=== PATIENT | female | born 1990 | race Caucasian/White ===

== ENCOUNTER → 2016-04-22 | Outpatient (CLI) | payer BC ==
[2016-04-22 13:31] LABS: Cancer Anitgen 125 <5.5 U/mL (<35.1)
== END ==
LOC: LABWHC1 12:31
PROVIDERS: ATTEND Obstetrics & Gynecology
DX: D49.59 Neoplasm of unspecified behavior of other genitourinary organ (principal); R23.2 Flushing
CPT/HCPCS: 36415; 84439; 84443; 86304

== ENCOUNTER → 2016-05-02 | Outpatient (CLI) | payer BC ==
--- NOTE | 2016-05-02 09:32 | USB ---
Reason for exam: clinical finding. History: Family history of breast cancer in maternal aunt at age 35. Took hormonal contraceptives beginning at age 17. Indicated problem(s): palpable abnormality and lump or thickening in the right breast. Physical Findings: Nurse Summary: 1cm nodule in the right breast, firm, movable (nurse dw). US Breast RT Right breast ultrasound includes all four quadrants, the retroareolar region and axilla. Finding demonstrate a 18 x 11 x 16mm oval, solid, hypoechoic, vascular lesion at 11 o'clock, probable fibroadenoma. These results were verbally communicated with the patient and result sheet given to the patient on 05/02/16. ASSESSMENT: Probably benign, BI-RAD 3 RECOMMENDATION: Consider Ultrasound core biopsy of the right breast. Consider surgical consultation. (to confirm if desired) Called Dr. Ugalde with mammographic findings and has scheduled an appointment for the patient for 05/14/16 at 3:[address] Arndt. PRELIMINARY REPORT CALLED AND FAXED TO DR. CHRISTINE ON 05/02/16 AT 1000/TP. MELECIOD
== END | disposition home or self-care (01) ==
LOC: RADUSWWP 08:17
PROVIDERS: ATTEND Obstetrics & Gynecology
DX: N63 Unspecified lump in breast (principal)

== ENCOUNTER → 2016-05-09 | Outpatient (CLI) | payer BC ==
--- NOTE | 2016-05-09 10:55 | US ---
EXAMINATION TYPE: US pelvic complete DATE OF EXAM: 05/09/2016 10:14 AM COMPARISON: US August 23, [address] October 28, 2014 on PACS CLINICAL HISTORY: R10.2 Pelvic pain. Ovarian CA at age 18. Ablation 2 years ago, no menses since. Tub al Ligation. . TECHNIQUE: Transvaginal (TV) and Transabdominal (TA) pelvic ultrasound. Date of LMP: 2 years ago EXAM MEASUREMENTS: Uterus: 7.9 x 5.5 x 4.1 cm cm Endometrial Stripe: 0.3 cm Right Ovary: 2.3 x 1.3 x 1.6 cm Left Ovary: 3.0 x 2.3 x 2.3 cm cm TECHNOLOGIST IMPRESSION: wnl 1. Uterus: Heterogeneous, prominent vessels seen within uterus. 2. Endometrium: wnl 3. Right Ovary: wnl 4. Left Ovary: with follicles. Largest = 1.0 x 0.8 x 0.7 cm 5. Bilateral Adnexa: wnl 6. Posterior cul-de-sac: wnl No concerning ovarian or adnexal masses identified on current study. IMPRESSION: No significant finding is seen to account for patient's symptoms.
== END | disposition home or self-care (01) ==
LOC: RADUSWWP 09:01
PROVIDERS: ATTEND Obstetrics & Gynecology
DX: R10.2 Pelvic and perineal pain (principal)
CPT/HCPCS: 76830; 76856

== ENCOUNTER 2016-06-10 08:04 | Day surgery (SDC) | payer BC ==
[2016-06-07 08:42] VITALS: BMI 24.7
[~2016-06-10 08:04] MED LIST: ALPRAZolam 0.5 MG TAB PO PRN; DEXAMETHASONE SOD PHOSPHATE 10 MG/ML 1 ML VIAL IV ONE; HEPARIN SODIUM,PORCINE 5,000 UNIT/ML 1 ML VIAL SQ ONE; HYDROmorphone 1 MG/ML 1 ML SYRINGE IVP PRN; LACTATED RINGERS 1,000 ML IV SCH; MIDAZOLAM 2 MG/2 ML VIAL IV PRN; ONDANSETRON 4 MG/2 ML VIAL IVP ONE; Pre Op ABX Message 1 EACH MISC MISCELLANE ONE
--- NOTE | 2016-06-10 08:16 | P.GSHP ---
History of Present Illness H&P Date: 06/10/16 Chief Complaint: Abnormal left breast ultrasound This a 26-year-old female who presents today for ultrasound-guided needle localized biopsy of left breast. Patient had a recent ultrasound shows a 18 mm density in the left breast suggestive of a fibroadenoma. Patient elected to undergo excisional below biopsied. The patient was originally scheduled for A CORE BIOPSY HOWEVER SHE DID NOT WANT TO UNDERGO THAT PROCEDURE DUE TO A PORTION OF THE MASS BEING POSSIBLY LEFT IN HER BREAST. - Constitutional Constitutional: Reports as per HPI Past Medical History Past Medical History: Cancer Additional Past Medical History / Comment(s): OVARIAN CANCER, NEUROCARDIOGENIC SYNCOPE, MIGRAINES, UTI, LOW BP,ANEMIA IN PAST. Having problems with n/v. States had a seizure aprrox. 2 yrs. ago. Hx. of Uterine Ablation. History of Any Multi-Drug Resistant Organisms: None Reported Past Surgical History: Tubal Ligation Additional Past Surgical History / Comment(s): Right oophorectomy, lesion removed from her right leg as a child, multiple eye surgeries for lazy eye, colonoscopy, EGD. Past Anesthesia/Blood Transfusion Reactions: No Reported Reaction Past Psychological History: Anxiety, Depression Smoking Status: Light tobacco smoker Past Alcohol Use History: None Reported Additional Past Alcohol Use History / Comment(s): Patient denies any history of smoking, street drug use or alcohol use. She does have problems with narcotic abuse(VICODIN). She is currently and lives at home with her . She has a son and daughter who are both alive and well. 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 Past Drug Use History: Opiates, Prescription Drug Abuse - Past Family History Mother Family Medical History: Diabetes Mellitus Father Family Medical History: Cancer Additional Family Medical History / Comment(s): KIDNEY CANCER Brother(s) Family Medical History: Unable to Obtain Son(s) Family Medical History: No Reported History Daughter(s) Family Medical History: No Reported History Medications and Allergies Home Medications Medication Instructions Recorded Confirmed Type Buprenorphine HCl/Naloxone HCl 1 each SL DAILY 06/06/15 06/07/16 History [Suboxone 8 mg-2 mg Sl Film] Ondansetron HCl [Zofran] 8 mg PO DAILY 06/07/16 06/07/16 History traZODone HCL 50 mg PO HS 06/07/16 06/07/16 History Allergies Allergy/AdvReac Type Severity Reaction Status Date / Time No Known Allergies Allergy Verified 06/07/16 08:17 Surgical - Exam - General well developed, no distress - Eyes PERRL - ENT normal pinna - Neck no masses - Respiratory normal expansion - Cardiovascular Rhythm: regular - Abdomen Abdomen: soft, non tender Breasts within normal limits. There is no masses palpated. There is no cervical or axillary lymphadenopathy. Results - Imaging Additional studies: 18 mm left breast density suggestive of fibroadenoma on ultrasound. Assessment and Plan Plan: Abnormal left breast also. Patient will undergo left breast needle localized biopsy.
--- NOTE | 2016-06-10 08:22 | P.GSHP ---
History of Present Illness H&P Date: 06/10/16 Chief Complaint: Abnormal right breast ultrasound This is a 26-year-old female who presents today for right breast ultrasound with needle localized biopsy. Patient's found have a right breast mass on ultrasound. The mass measures prostate 18 mm diameter and is suggestive of a fibroadenoma. Patient rents today for right breast needle localized ultrasound- guided biopsy. The patient was really scheduled for core biopsy however she did not wish to perform this procedure. - Constitutional Constitutional: Reports as per HPI Past Medical History Past Medical History: Cancer Additional Past Medical History / Comment(s): OVARIAN CANCER, NEUROCARDIOGENIC SYNCOPE, MIGRAINES, UTI, LOW BP,ANEMIA IN PAST. Having problems with n/v. States had a seizure aprrox. 2 yrs. ago. Hx. of Uterine Ablation. History of Any Multi-Drug Resistant Organisms: None Reported Past Surgical History: Tubal Ligation Additional Past Surgical History / Comment(s): Right oophorectomy, lesion removed from her right leg as a child, multiple eye surgeries for lazy eye, colonoscopy, EGD. Past Anesthesia/Blood Transfusion Reactions: No Reported Reaction Past Psychological History: Anxiety, Depression Smoking Status: Light tobacco smoker Past Alcohol Use History: None Reported Additional Past Alcohol Use History / Comment(s): Patient denies any history of smoking, street drug use or alcohol use. She does have problems with narcotic abuse(VICODIN). She is currently and lives at home with her . She has a son and daughter who are both alive and well. 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 Past Drug Use History: Opiates, Prescription Drug Abuse - Past Family History Mother Family Medical History: Diabetes Mellitus Father Family Medical History: Cancer Additional Family Medical History / Comment(s): KIDNEY CANCER Brother(s) Family Medical History: Unable to Obtain Son(s) Family Medical History: No Reported History Daughter(s) Family Medical History: No Reported History Medications and Allergies Home Medications Medication Instructions Recorded Confirmed Type Buprenorphine HCl/Naloxone HCl 1 each SL DAILY 06/06/15 06/07/16 History [Suboxone 8 mg-2 mg Sl Film] Ondansetron HCl [Zofran] 8 mg PO DAILY 06/07/16 06/07/16 History traZODone HCL 50 mg PO HS 06/07/16 06/07/16 History Allergies Allergy/AdvReac Type Severity Reaction Status Date / Time No Known Allergies Allergy Verified 06/07/16 08:17 Surgical - Exam - General well developed, no distress - Eyes PERRL - ENT normal pinna - Neck no masses - Respiratory normal expansion - Cardiovascular Rhythm: regular - Abdomen Abdomen: soft, non tender Breasts are within normal limits. There is no masses palpated. There is no cervical or axillary lymphadenopathy. Assessment and Plan Plan: Abnormal right breast ultrasound. Patient will undergo right breast ultrasound a needle localized biopsy.
[2016-06-10] MEDS ORDERED: LIDOCAINE 1% INJ 10MG/ML (20 ML MDV) SQ ONE (09:20)
[2016-06-10] MEDS ORDERED: SODIUM BICARB 4% 5 ML VIAL (0.48 MEQ/ML) MISCELLANE ONE (09:20)
[2016-06-10] MEDS ORDERED: SUCCINYLCHOLINE CHLORIDE 100 MG/5 ML SYR IV ONE (10:20)
[2016-06-10] MEDS ORDERED: ACETAMINOPHEN IV (For NPO) 1,000 MG/100 ML VIAL ONE (10:20)
[2016-06-10] MEDS ORDERED: fentaNYL (PF) 50 MCG/ML 2 ML AMP ONE (10:20)
[2016-06-10] MEDS ORDERED: LIDOCAINE 1% INJ 10MG/ML (20 ML MDV) ONE (10:20)
[2016-06-10] MEDS ORDERED: PROPOFOL 10 MG/ML 20 ML VIAL IV ONE (10:20)
[2016-06-10] MEDS ORDERED: KETOROLAC 30 MG/ML 1 ML VIAL ONE (10:20)
[2016-06-10] MEDS ORDERED: MIDAZOLAM 2 MG/2 ML VIAL ONE (10:20)
[2016-06-10] MEDS ORDERED: SODIUM CHLORIDE 0.9% 50 ML with ceFAZolin 2,000 MG IV ONE ×2 (10:43)
[2016-06-10] MEDS ORDERED: BUPIVACAIN-EPI 0.25%-1:200,000 30 ML VIAL SQ ONE ×3 (10:47)
--- NOTE | 2016-06-10 11:13 | P.OP ---
Date of Procedure: 06/10/16 Preoperative Diagnosis: Abnormal right breast ultrasound Postoperative Diagnosis: Abnormal right breast ultrasound Procedure(s) Performed: Right breast biopsy with ultrasound-guided needle localization Anesthesia: MAC Surgeon: Renzo Arndt Estimated Blood Loss (ml): 5 Pathology: other (Right breast biopsy) Condition: stable Disposition: PACU Description of Procedure: The patient's placed on the operative table in supine position. She received IV sedation. Patient's right breast was prepped and draped usual sterile fashion. The patient had previously undergone ultrasound-guided needle localization. The wire was located at the 7 o'clock position the breast. Using a 15 blade a skin incision was made. Next using cautery and Harmonic scissors a core of tissue around the wire was removed. The lesion was visualized in the specimen. It appeared to measure approximately 1.5 cm in diameter and was round, white and glistening. The Bovie was used for hemostasis. The specimen sent the [facility]. The skin was closed interrupted 3-0 Monocryl suture. Dermabond was applied. She was sent to recovery room in stable condition.
[2016-06-10 11:28] VITALS: TEMP 97.2
[2016-06-10] MEDS ORDERED: ONDANSETRON 4 MG/2 ML VIAL IVP ONE (11:28)
--- NOTE | 2016-06-10 11:48 | USB ---
EXAM: Needle localization with wire placement and follow-up attempted specimen ultrasound and follow-up radiograph. CLINICAL HISTORY: Palpable mass right breast with history of ovarian cancer, abnormal ultrasound. TECHNIQUE: Needle localization with wire placement and surgical excision of area of concern in the right breast as requested by surgeon. COMPARISON: Prior right breast ultrasound May 02, 2016. FINDINGS: The procedure of needle localization with wire placement and than surgical excision was explained to the patient. Benefits, alternatives, and risks were discussed. An informed consent was then obtained. Preprocedure ultrasound procedure scanning redemonstrates 1.6 x 1.2 cm well- circumscribed heterogeneous hypoechoic lesion at 11:00 position in the left breast. The overlying skin was prepped and draped in usual sterile fashion. Lidocaine buffered with bicarbonate was used as anesthetic into the skin and subcutaneous tissue up to the level of area of concern. A 5 cm needle was used. It was placed under ultrasound guidance into the lesion almost through deeper wall. At this point, wire was placed and the needle was withdrawn. The wire was fixed to patient's skin. The patient tolerated the procedure well without any immediate complication. The patient was kept in the radiology department for short stay after the procedure and then taken to surgery for surgical excision. Attempted ultrasound specimen was difficult to show well-circumscribed mass. Specimen mammogram was then performed which showed entire needle as well as targeted well- circumscribed roughly 1.5 cm mass. The patient was kept in hospital for short stay after the procedure and then discharged home in stable condition. IMPRESSION: Successful, uncomplicated needle localization with wire placement and surgical excision of palpable mass in the right breast, full pathology results to follow. Low to intermediate index of suspicion noted at time of procedure. Favor fibroadenoma. Pathology Results: Benign BREAST, RIGHT, NEEDLE LOCALIZATION EXCISION: FIBROADENOMA, NARROWLY EXCISED. ADJACENT BREAST WITH FIBROCYSTIC CHANGES INCLUDING FIBROSIS, CYSTS, ADENOSIS, APOCRINE METAPLASIA, LACTATIONAL CHANGES AND RARE MICROCALCIFICATIONS. Recommendation Follow up mammogram of the right breast in 6 months. OVIDIO
[2016-06-10 12:01] VITALS: RESP 18
[2016-06-10] MEDS ORDERED: ACETAMINOPHEN TAB 325 MG TAB PO ONE (12:26)
[2016-06-10 12:45] VITALS: BP 113/72; PULSE 67
== END 2016-06-10 12:57 | disposition home or self-care (01) ==
LOC: OR 08:04
PROVIDERS: ATTEND Surgery
DX: D24.1 Benign neoplasm of right breast (principal); N60.31 Fibrosclerosis of right breast; N60.21 Fibroadenosis of right breast; N60.81 Other benign mammary dysplasias of right breast; N64.89 Other specified disorders of breast; Z85.43 Personal history of malignant neoplasm of ovary; F41.9 Anxiety disorder, unspecified; F32.9 Major depressive disorder, single episode, unspecified; F17.200 Nicotine dependence, unspecified, uncomplicated; Z79.891 Long term (current) use of opiate analgesic; Z79.899 Other long term (current) drug therapy
CPT/HCPCS: 19301; 88305; 76098; 76999; 19285; J2250; J1644; J1100; J2405; J2001; J3010; J1885; J0690; J0131; J0330; J2704

== ENCOUNTER → 2016-09-30 | Outpatient (CLI) | payer BC ==
--- NOTE | 2016-09-30 23:05 | MR ---
EXAMINATION TYPE: MR brain wo con DATE OF EXAM: 09/30/2016 COMPARISON: NONE HISTORY: burning in feet, numbness in arms and different body parts Standard multiplanar, multisequence MRI departmental protocol Multiplanar, multisequence images of the brain were acquired. Diffusion weighted imaging was performe d. FINDINGS: Ventricles and sulci appear normal. There is no mass effect nor midline shift. There is no sign of intracranial hemorrhage. Womack-white matter structures have normal signal pattern. There is no evidence of cerebral edema. Brainstem appears normal. Corpus callosum is normal. Sella turcica is no rmal. IMPRESSION: Normal MRI scan of the brain.
== END | disposition home or self-care (01) ==
LOC: RADMRIMAIN 21:11
PROVIDERS: ATTEND Family Medicine
DX: G81.90 Hemiplegia, unspecified affecting unspecified side (principal)
CPT/HCPCS: 70551

== ENCOUNTER → 2017-03-26 | Outpatient (CLI) | payer BC ==
--- NOTE | 2017-03-27 07:08 | US ---
EXAMINATION TYPE: US pelvis complete transvag DATE OF EXAM: 03/26/2017 COMPARISON: Prior pelvic ultrasound May 09, 2016 CLINICAL HISTORY: R10.32 Abdominal pain, left lower quadrant. History of RIGHT ovarian cancer with pa rtial ovary removed. Ablation x 3 years ago. TECHNIQUE: Transvaginal (TV) and Transabdominal (TA) Date of LMP: Unknown due to ablation, EXAM MEASUREMENTS: Uterus: 6.5 x 5.1 x 3.2 cm Endometrial Stripe: Not well visualized Right Ovary: 2.8 x 1.3 x 1.0 cm Left Ovary: 4.3 x 3.6 x 2.4 cm Increase in bowel gas noted 1. Uterus: Anteverted Heterogenous 2. Endometrium: Not well visualized to due ablation 3. Right Ovary: wnl 4. Left Ovary: Only seen transabdominally. Complex lesion seen - 2.3 x 2.1 x 2.0 cm Color doppler imaging shows good vascular flow within the ovaries; 5. Bilateral Adnexa: Bowel gas seen 6. Posterior cul-de-sac: no free fluid cervix- wnl Heterogeneous anteverted uterus is seen. Endometrium is poorly seen but not suspiciously thickened. N o free fluid is seen in pelvic cul-de-sac. In the left ovary there is 2.3 cm round cystic lesion with increased through transmission that has in ternal debris, possible hemorrhagic cyst new from prior exam. IMPRESSION: Nonsimple 2.3 cm cyst left ovary favoring hemorrhagic cyst. Consider follow-up ultrasound in 6 weeks' time to reassess.
== END | disposition home or self-care (01) ==
LOC: RADUSWWP 16:08
PROVIDERS: ATTEND Family Medicine
DX: N83.202 Unspecified ovarian cyst, left side (principal)
CPT/HCPCS: 76830; 76856

== ENCOUNTER → 2017-05-08 | Outpatient (CLI) | payer BC ==
--- NOTE | 2017-05-08 09:59 | US ---
EXAMINATION TYPE: US pelvis complete transvag DATE OF EXAM: 05/08/2017 COMPARISON: US 2018 CLINICAL HISTORY: N83.20 PREV OVARIAN CYST. Intermittent left pelvic pain, prior left cyst, history o f right ovarian CA 2008, 2, para 2, uterine ablation 2015 TECHNIQUE: . Transabdominal sonographic images of the pelvis were acquired. Transvaginal sonographi c images were medically necessary to better assess the following anatomy: ovaries Date of LMP: 2016 EXAM MEASUREMENTS: Uterus: 7.6 x 4.2 x 4.9 cm Endometrial Stripe: 0.6 cm Right Ovary: 2.6 x 1.4 x 1.4 cm Left Ovary: 2.8 x 2.7 x 1.5 cm 1. Uterus: anteverted, heterogeneous, nabothian cysts 2. Endometrium: wnl 3. Right Ovary: 0.7cm cystic lesion, possible dominant follicle 4. Left Ovary: 1.3cm cystic lesion 5. Bilateral Adnexa: wnl 6. Posterior cul-de-sac: small amount of free fluid IMPRESSION: 1. Nonspecific cystic lesions of the ovaries. Consider follow-up study in 6 weeks. 2. Small amount of free fluid within the pelvis.
== END | disposition home or self-care (01) ==
LOC: RADUSWWP 09:02
PROVIDERS: ATTEND Obstetrics & Gynecology
DX: N83.202 Unspecified ovarian cyst, left side (principal)
CPT/HCPCS: 76830; 76856

== ENCOUNTER → 2018-04-24 | Outpatient (CLI) | payer BC ==
[2018-04-24 08:02] LABS: Basophils % (A) 0 %; Eosinophils # (A) 0.1 k/uL (0-0.7); Eosinophils % (A) 1 %; HCT 41.2 % (34.0-46.0); HGB 13.4 gm/dL (11.4-16.0); Lymphocytes # (A) 2.1 k/uL (1.0-4.8); Lymphocytes % (A) 28 %; MCHC 32.5 g/dL (31.0-37.0); MCV 92.5 fL (80.0-100.0); Mean Platelet Volume 6.7; Monocytes # (A) 0.3 k/uL (0-1.0); Monocytes % (A) 4 %; Neutrophils % (A) 65 %; Platelet Count 298 k/uL (150-450); RBC 4.45 m/uL (3.80-5.40); RDW 12.5 % (11.5-15.5); WBC 7.6 k/uL (3.8-10.6)
[2018-04-24 08:11] LABS: ALT 19 U/L (9-52); AST 15 U/L (14-36); Albumin 4.5 g/dL (3.5-5.0); Alkaline Phosphatase 51 U/L (38-126); Anion Gap 7 mmol/L; Blood Urea Nitrogen 9 mg/dL (7-17); Calcium 9.3 mg/dL (8.4-10.2); Carbon Dioxide 30 mmol/L (22-30); Chloride 100 mmol/L (98-107); Cholesterol 154 mg/dL (<200); Glucose 95 mg/dL (74-99); HDL Cholesterol 63 mg/dL (40-60); LDL Cholesterol,Calculated 72 mg/dL (0-99); Potassium 4.4 mmol/L (3.5-5.1); Sodium 137 mmol/L (137-145); Total Bilirubin 0.5 mg/dL (0.2-1.3); Total Protein 6.9 g/dL (6.3-8.2); Triglycerides 97 mg/dL (<150)
--- NOTE | 2018-04-24 08:23 | US ---
EXAMINATION TYPE: US portal vein DATE OF EXAM: 04/24/2018 COMPARISON: NONE CLINICAL HISTORY: R93.2, R10.30 Left lower quadrant pain. EXAM MEASUREMENTS: Liver Length: 14.4cm Gallbladder Wall: 0.2 cm CBD: 0.4cm Right Kidney: 13.2 x 5.4 4.2cm ANATOMY: Pancreas: Limited by bowel gas Liver: wnl Color flow patency within the portal vein: yes Portal Vein Flow: hepatopedal Gallbladder: some possible gravelly sludge Evidence for sonographic Sanchez's sign: no CBD: wnl Right Kidney: measures large Ascites noted? no Normal flow in liver and hepatic artery. IMPRESSION: Normal directional flow within the portal venous system. Gallbladder sludge or tiny micro calculi noted.
== END | disposition home or self-care (01) ==
LOC: RADUSWWP 06:54
PROVIDERS: ATTEND Family Medicine
DX: R10.30 Lower abdominal pain, unspecified (principal); D64.9 Anemia, unspecified; R06.02 Shortness of breath; R93.2 Abnormal findings on diagnostic imaging of liver and biliary tract; Z13.220 Encounter for screening for lipoid disorders
CPT/HCPCS: 36415; 80053; 80061; 85025; 93976

== ENCOUNTER → 2020-03-01 | Outpatient (CLI) | payer BC ==
--- NOTE | 2020-03-01 10:04 | CT ---
EXAMINATION TYPE: CT brain wo con DATE OF EXAM: 03/01/2020 COMPARISON: None HISTORY: Numbness CT DLP: 1036 mGycm. Automated Exposure Control for Dose Reduction was Utilized. TECHNIQUE: CT scan of the head is performed without contrast. FINDINGS: There is no acute intracranial hemorrhage, mass effect, or midline shift identified. The ventricles and sulci are within normal limits in size. The globes are intact and the visualized sin uses are clear. Cerebellar tonsils are low-lying at the level of foramen magnum. IMPRESSION: 1. Cerebellar tonsils are low-lying at the level of foramen magnum. Recommend follow-up MRI to exclud e Chiari malformation. 2. Partially empty sella turcica. Constellation of findings can sometimes be seen with benign increas ed intracranial pressure. Correlate clinically.
== END | disposition home or self-care (01) ==
LOC: RADCTMAIN 09:32
PROVIDERS: ATTEND Family Medicine
DX: G93.89 Other specified disorders of brain (principal); E23.6 Other disorders of pituitary gland
CPT/HCPCS: 70450

== ENCOUNTER 2020-05-05 07:45 | Day surgery (SDC) | payer BC ==
[2020-05-02 14:48] VITALS: BMI 28.8
[~2020-05-05 07:45] MED LIST changes: -ALPRAZolam 0.5 MG TAB PO PRN; -DEXAMETHASONE SOD PHOSPHATE 10 MG/ML 1 ML VIAL IV ONE; +DEXAMETHASONE SOD PHOSPHATE 4 MG/ML 1 ML VIAL IV ONE; -HEPARIN SODIUM,PORCINE 5,000 UNIT/ML 1 ML VIAL SQ ONE; +HYDROmorphone 0.5 MG/0.5 ML SYRINGE IVP PRN; -HYDROmorphone 1 MG/ML 1 ML SYRINGE IVP PRN; +SCOPOLAMINE 1.5MG/72HR PATCH TRANSDERM ONE
--- NOTE | 2020-05-05 08:45 | P.GSHP ---
History of Present Illness H&P Date: 05/05/20 CHIEF COMPLAINT: Painful lesions along right shoulder/arm lesions HISTORY OF PRESENT ILLNESS: The patient is a 30 year-old female with history of new growths along the right shoulder/arm x 2 present for at least 6 months that are aching, tender to touch. She does smoke. She presents for excision. PAST MEDICAL HISTORY: Please see list. PAST SURGICAL HISTORY: Please see list. MEDICATIONS: Please see list. ALLERGIES: Please see list. SOCIAL HISTORY: No illicit drug use FAMILY HISTORY: No reports of Crohn disease or ulcerative colitis. REVIEW OF ORGAN SYSTEMS: CONSTITUTIONAL: No fevers or chills. No recent weight loss. EYES: Denies any trouble with vision. No glasses. HEENT: No difficulties with hearing. No nosebleeds. No difficulty swallowing. RESPIRATORY: Denies pneumonia. Denies any troubles with breathing or dyspnea on exertion. CARDIOVASCULAR: Denies any chest pain, palpitations, or recent heart attacks. GASTROINTESTINAL: Denies fatty food intolerance. Denies change in bowel habits and gas bloat. GENITOURINARY: Denies any blood in urine or increased urinary frequency. NEUROLOGICAL: Denies any numbness or tingling along the distal extremities. No seizure disorders or headaches. MUSCULOSKELETAL: Denies any back pain, stiffness or joint arthritis. SKIN: No current skin cancer. No rash. Has skin lesion present over 6 months. PSYCHIATRIC: Denies current depression or suicidal thoughts. ENDOCRINE: Denies current thyroid disorders. Denies any blood sugar glucose intolerance. HEME/LYMPHATIC: Denies any lumps and bumps around the neck. No recent deep venous thrombosis. ALLERGY/IMMUNOLOGY: No immunoglobulin therapy. No immune deficiencies. BREAST: Denies current breast lumps, pain or nipple discharge. PHYSICAL EXAM: VITAL SIGNS: Stable Musculoskeletal: No clubbing, cyanosis. Range of motion intact. GENERAL: Well developed and in no acute distress. Pleasant. HEENT: No sclera icterus. Extraocular movements grossly intact. Moist buccal mucosa. Head is atraumatic, normocephalic. Hears conversational speech. No nasal drainage. NECK: Supple without lymphadenopathy. No JV distention. CHEST: Non-labored respirations and equal bilateral excursions. CARDIOVASCULAR: Regular rate and rhythm. Palpable 2+ radial pulses. ABDOMEN: Soft. Non-tender. Nondistended. NEUROLOGIC: No focal or lateralizing signs. PSYCH: Appropriate affect. Alert and oriented to person, place and time. SKIN: Warm and well perfused with good skin turgor. 2 cm lesion sensitive to stefano ch along the right outer shoulder. ASSESSMENT: 1. Right shoulder/arm lesions x 2 PLAN: 1. Will proceed of excision of right shoulder/arm lesions x 2. Benefits and risks of infection due to location of lesion also reviewed 2. DVT prophylaxis. 3. Antibiotic prophylaxis. 4. Time of recovery, at least 2 weeks Past Medical History Past Medical History: Cancer Additional Past Medical History / Comment(s): current tumor right shoulder, currently being seen for testing r/t numbness and tingling hands, and feet, and upper body muscle pain, HX OVARIAN CANCER, past hx NEUROCARDIOGENIC SYNCOPE, MIGRAINES States had one seizure in past r/t medication History of Any Multi-Drug Resistant Organisms: None Reported Past Surgical History: Tubal Ligation, Uterine Ablation Additional Past Surgical History / Comment(s): Right oophorectomy, lesion removed from her right leg as a child, multiple eye surgeries for lazy eye, colonoscopy, EGD. rt breast lipoma, hx of dental implants and bone graft Past Anesthesia/Blood Transfusion Reactions: No Reported Reaction Past Psychological History: Depression Additional Psychological History / Comment(s): hx of post depression Smoking Status: Current every day smoker Past Alcohol Use History: Rare Additional Past Alcohol Use History / Comment(s): patient smokes 2 cigarettes daily Past Drug Use History: Opiates, Prescription Drug Abuse Additional Drug Use History / Comment(s): hx of opiod addiction, states clean since 2014 - Past Family History Mother Family Medical History: Diabetes Mellitus Father Family Medical History: Cancer Additional Family Medical History / Comment(s): KIDNEY CANCER Brother(s) Family Medical History: Unable to Obtain Son(s) Family Medical History: No Reported History Daughter(s) Family Medical History: No Reported History Medications and Allergies Home Medications Medication Instructions Recorded Confirmed Type Amitriptyline HCl 20 mg PO HS 05/02/20 05/02/20 History Phentermine HCl [Adipex-P] 37.5 mg PO DAILY 05/02/20 05/02/20 History Allergies Allergy/AdvReac Type Severity Reaction Status Date / Time No Known Allergies Allergy Verified 05/02/20 14:38 Surgical - Exam Vital Signs Temp Pulse Resp BP Pulse Ox 98 F 92 20 139/85 98 05/05/20 08:22 05/05/20 08:22 05/05/20 08:22 05/05/20 08:22 05/05/20 08:22
[2020-05-05] MEDS ORDERED: ACETAMINOPHEN TAB 500 MG TAB PO PRN (08:47)
[2020-05-05] MEDS ORDERED: PROPOFOL 10 MG/ML 20 ML VIAL IV ONE (09:48)
[2020-05-05] MEDS ORDERED: KETAMINE 10 MG/ML 20 ML VIAL ONE (09:48)
[2020-05-05] MEDS ORDERED: MIDAZOLAM 2 MG/2 ML VIAL ONE (09:48)
[2020-05-05] MEDS ORDERED: fentaNYL (PF) 50 MCG/ML 2 ML AMP ONE (09:48)
[2020-05-05] MEDS ORDERED: LIDOCAINE 1% INJ 10MG/ML (20 ML MDV) ONE (09:48)
[2020-05-05] MEDS ORDERED: BUPIVACAIN-EPI 0.5%-1:200,000 30 ML VIAL SQ ONE (09:53)
[2020-05-05 10:55] VITALS: RESP 16; TEMP 97
[2020-05-05 11:56] VITALS: BP 100/61; PULSE 87
--- NOTE | 2020-05-05 12:46 | P.OP ---
Date of Procedure: 05/05/20 Description of Procedure: SURGEON: ZAIDA SOLIZ MD [employer] TECHNICIAN: None. PREOPERATIVE DIAGNOSES: 1. Right posterior shoulder lesion 2. Right anterior upper arm lesion 3. Tobacco abuse 4. Migraines 5. Neurocardiogenic syncope 6. History ovarian cancer 7. Depressive disorder POSTOPERATIVE DIAGNOSES: 1. Right posterior shoulder lesion, 3 cm 2. Right anterior upper arm lesion, 3.5 cm 3. Tobacco abuse 4. Migraines 5. Neurocardiogenic syncope 6. History ovarian cancer 7. Depressive disorder PROCEDURES PERFORMED: 1. Excision of right subcutaneous posterior shoulder lesion, 3.5 cm 2. Excision of right subcutaneous upper arm lesion, 3 cm 3. Complex closure of right subcutaneous posterior shoulder incision, 4 cm 4. Complex closure of right subcutaneous upper arm incision, 4 cm Anesthesia: GETA, local Estimated Blood Loss (ml): 5 Pathology: other (shoulder mass) Condition: stable Disposition: same day COMPLICATIONS: None. FINDINGS: 1. Subcutaneous extension of right upper arm and right posterior shoulder lesions completely excised INDICATIONS: The patient is a 30-year-old female who presents with symptomatic right shoulder and upper arm shoulder tumors. Benefits and risks of surgical intervention were described including bleeding, infection. Informed consent was obtained. DESCRIPTION OR PROCEDURE: In the preoperative area, the area of concern was marked with indelible marker. Patient was brought into the operating room. After general induction, the patient was positioned in left lateral decubitus position. The shouler was prepped and draped in a standard sterile fashion with ChloraPrep. Timeout protocol was confirmed with the surgical team regarding the patient's name, procedure to be performed including preoperative medications. DVT prophylaxis was confirmed with SCDs. A field block was placed of the right shoulder. At the posterior shoulder, an elliptical longitudinal incision of 4 cm x 1 cm was made over the lesion using #15 blade. Electro-Bovie cautery was used to excise the lesion into the subcutaneous tissue. The tumor was measured of 4-cm x 1-cm. Hemostasis was excellent. The incision was undermined to create flaps for complex closure of the defect. 0 Vicryl was placed for the deep subcutaneous tissue followed by 3-0 Vicryl. 4-0 Monocryl was placed in the dermis in a running subcuticular fashion. A field block was placed of the right upper arm. At the right upper arm, a transverse incision of 4 cm x 1 cm was made over the lesion using #15 blade. Electro-Bovie cautery was used to excise the lesion into the subcutaneous tissue. The tumor was measured of 4-cm x 1-cm. Hemostasis was excellent. The incision was undermined to create flaps for complex closure of the defect. 0 Vicryl was placed for the deep subcutaneous tissue followed by 3-0 Vicryl. 4-0 Monocryl was placed in the dermis in a running subcuticular fashion. The skin was cleansed and Exofin tape with liquid was applied for a fourth and final layer along all incision. The incisions were covered with Optifoam dressing. Local anesthetic was placed. At the end of the procedure, needle, sponge, and instrument count was verified correct by surgical elastic knitter. The patient was taken to the postanesthesia care unit in stable condition. Plan - Discharge Summary Discharge Rx Participant: No New Discharge Prescriptions: New Acetaminophen Tab [Tylenol Tab] 1,000 mg PO Q6HR PRN #30 tablet PRN Reason: Pain Ibuprofen [Motrin] 600 mg PO Q8HR PRN #30 tab PRN Reason: Pain Continue Phentermine HCl [Adipex-P] 37.5 mg PO DAILY Amitriptyline HCl 20 mg PO HS Discharge Medication List Amitriptyline HCl 20 mg PO HS 05/02/20 [History] Phentermine HCl [Adipex-P] 37.5 mg PO DAILY 05/02/20 [History] Acetaminophen Tab [Tylenol Tab] 1,000 mg PO Q6HR PRN #30 tablet 05/05/20 [Rx] Ibuprofen [Motrin] 600 mg PO Q8HR PRN #30 tab 05/05/20 [Rx] Follow up Appointment(s)/Referral(s): Zaida Soliz MD [STAFF PHYSICIAN] - 05/09/20 5:15 pm Patient Instructions/Handouts: *Surgery [facility] - (Anesthesia) Discharge Instructions Outpatient Surgery, Excision of Skin Lesion (DC), Mole or Nevus Excision (DC) Activity/Diet/Wound Care/Special Instructions: NO WIDE MOTIONS OF THE SHOULDERS/ARMS FOR 1 WEEK. See instructions on dressing. DO NOT REMOVE DRESSING. No lifting over 10 pounds in 2 weeks, May 19June shower. No bath tub soaks for two weeks, May 19 Diet as tolerated. Discharge Disposition: HOME SELF-CARE
== END 2020-05-05 12:19 | disposition home or self-care (01) ==
LOC: OR 07:45
PROVIDERS: ATTEND Surgery Plastic and Reconstructive Surgery
DX: L98.8 Other specified disorders of the skin and subcutaneous tissue (principal); F17.210 Nicotine dependence, cigarettes, uncomplicated; F32.9 Major depressive disorder, single episode, unspecified; Z85.43 Personal history of malignant neoplasm of ovary; Z83.3 Family history of diabetes mellitus; Z80.51 Family history of malignant neoplasm of kidney; Z79.899 Other long term (current) drug therapy
CPT/HCPCS: 81025; 88305; 88312; 88342; 88341; 11403; 11404; 13101; 13102; J2250; J1100; J0690; J2405; J2001; J3010; J2704

== ENCOUNTER → 2020-05-15 | Outpatient (CLI) | payer BC ==
--- NOTE | 2020-05-15 22:36 | MR ---
EXAMINATION TYPE: MR brain wo con DATE OF EXAM: 05/15/2020 COMPARISON: MRI brain September 30, 2016. CT brain March 01, 2020 HISTORY: Headaches, BUE numbness, abnormal CT TECHNIQUE: Multiplanar, multisequence imaging of the brain and brainstem is performed without IV cont rast. FINDINGS: Diffusion weighted images demonstrate no evidence of a recent infarct or other diffusion abnormality. There is no extraaxial fluid collection or new significant white matter signal abnormality. The vent ricular system and cisternal spaces are normal in size and appearance. The brain volume is age appro priate. Midline structures demonstrate normal morphology. The craniocervical junction appears within normal limits on MRI, no significant change from 2017 MRI. Slight asymmetric low-lying right cerebellar tons il, no greater than 5 mm inferior distention . Normal vascular flow voids are present. The visualized sinuses are clear and the globes are intact. IMPRESSION: No Chiari type I malformation. Unremarkable study. No significant change from 2017 MRI
== END | disposition home or self-care (01) ==
LOC: RADMRIMAIN 18:52
PROVIDERS: ATTEND Psychiatry & Neurology Neurology
DX: R51.9 Headache, unspecified (principal)
CPT/HCPCS: 70551

== ENCOUNTER → 2024-03-01 | Outpatient (CLI) | payer BC ==
--- NOTE | 2024-03-01 14:56 | US ---
EXAMINATION TYPE: US pelvis complete transvag DATE OF EXAM: 03/01/2024 COMPARISON: NONE CLINICAL INDICATION: Female, 34 years old with history of N39.0 URINARY TRACT INFECTION, SITE NOT SPE CIFIED; recurrent UTIs TECHNIQUE: Transvaginal (TV) and Transabdominal (TA) . Transabdominal grayscale sonographic images of the pelvis were acquired. Transvaginal sonographic im ages were medically necessary to better assess the following anatomy: Uterus Doppler imaging: Color Doppler Images were obtained. Spectral doppler images were obtained. FINDINGS: Date of LMP: ablation 10 years prior EXAM MEASUREMENTS: Uterus: 8.1x4.2x5.5 cm Endometrial Stripe: 0.3 cm Right Ovary: 2.7x1.6x1.2 cm Left Ovary: 3.2x2.0x2.9 cm 1. Uterus: Anteverted several cystic areas noted within cervix, 2.5x2.3x2.6cm heterogenous area no amadou at right fundal region 2. Endometrium: wnl 3. Right Ovary: wnl 4. Left Ovary: 1.7x1.8x1.8cm cystic area Spectral, color and waveform doppler imaging shows good arterial and venous flow within the ovaries ; there is no evidence for ovarian torsion. 5. Bilateral Adnexa: wnl 6. Posterior cul-de-sac: wnl exam limited by bowel gas IMPRESSION: 1. No evidence for acute process. 2. Fibroid uterus. 3. Post endometrial ablation changes [facility], , 03/01/2024 2:54 PM
== END | disposition home or self-care (01) ==
LOC: RADUSWWP 13:20
PROVIDERS: ATTEND Family Medicine
DX: N39.0 Urinary tract infection, site not specified (principal); Z98.890 Other specified postprocedural states; D25.9 Leiomyoma of uterus, unspecified
CPT/HCPCS: 76830; 76856; 93975